=== PATIENT | male | born 1930 | race Caucasian/White ===

== ENCOUNTER 2016-07-30 06:58 | Day surgery (SDC) | payer OTHER ==
[~2016-07-30] VITALS: Ht 180.3 cm; Wt 68.0 kg
[~2016-07-30 06:58] MED LIST: ADULT LOW DOSE81 M1 PO; ALLOPURINOL300 MG PO; AUGMENTIN875 MG PO; AVODART0.5 MG PO; AZELASTINE137 MCG/0. BOTH NARES; BACTRIM,SEPT1 TABLET PO; COLCHICINE0.6 MG PO; COLCRYS0.6 MG PO; COUMADIN,JANTO2.5 MG PO; COUMADIN3 MG PO; HYDROCHLOROTH12.5 M2 PO; IPRATROPIUM BRO15 ML BOTH NARES; LEVAQUIN500 MG PO; LISINOPRIL20 MG PO; NAPROSYN500 MG PO; NAPROXEN500 M2 PO; NORVASC2.5 MG PO; PRAVACHOL80 MG PO; PRINIVIL20 MG PO; ZESTRIL40 MG PO
[2016-07-30 07:46] VITALS: BP 140/68
[2016-07-30 08:11] LABS: HEMATOCRIT 40.9 % (38.0-50.0); MCH 32.2 PG (29.0-34.0); MCHC 33.3 G/DL (30.0-36.0); MCV 96.9 FL (86-99); MEAN PLAT.VOLUME 10.3 uM^3 (9.0-12.4); PLATELET COUNT 111 K/uL (156-360); RBC DIS.WIDTH-CV 14.9 % (11.8-14.6); RBC DIS.WIDTH-SD 52.9 % (39-53); RED BLOOD COUNT 4.22 M/uL (4.00-5.50); WHITE BLOOD COUNT 5.7 K/uL (4.1-10.2)
[2016-07-30 08:32] LABS: INTER. NORMALIZED RATIO 1.1; PROTHROMBIN TIME 11.3 (9.2-11.2)
[2016-07-30 08:36] LABS: ANION GAP 7 MEQ/L (2-14); CHLORIDE 108 MEQ/L (99-109); POTASSIUM 4.2 MEQ/L (3.7-5.4); SAMPLE HEMOLYSIS CHECK 0; SAMPLE ICTERIC CHECK 0; SAMPLE LIPEMIA CHECK 0; SODIUM 143 MEQ/L (136-147)
[2016-07-30 08:42] LABS: GFR ESTIMATE (CALCULATED) > 59 mL/min/; GLUCOSE 85 mg/dL (70-99); UREA NITROGEN (BUN) 24 mg/dL (9-23)
[2016-07-30 15:36] VITALS: BP 158/95
[2016-07-30 17:37] VITALS: BP 142/78
[2016-07-30 19:44] VITALS: BP 134/81
[2016-07-30 23:21] VITALS: BP 125/58
[2016-07-31 03:19] VITALS: BP 133/61
[2016-07-31 07:23] VITALS: BP 145/62
[2016-07-31 11:43] VITALS: BP 151/81
[2016-07-31] MEDS ORDERED: CIPRO500 MG PO (22:42)
[2016-07-31] MEDS ORDERED: COUMADIN3 MG PO (22:42)
[2016-07-31] MEDS ORDERED: ASPIR-LOW81 MG PO (22:42)
[2016-07-31] MEDS ORDERED: LORCET 5-325 M1 EACH PO (22:43)
== END 2016-07-31 15:42 | disposition home or self-care (01) ==
LOC: SDC 06:58 → 2SOUTH 11:07 → 2EAST 11:07
PROVIDERS: Urology
DX: N20.0 Calculus of kidney (principal); N40.0 Benign prostatic hyperplasia without lower urinary tract symptoms; R31.0 Gross hematuria; I48.2 Chronic atrial fibrillation; Z79.01 Long term (current) use of anticoagulants; N99.820 Postprocedural hemorrhage of a genitourinary system organ or structure following a genitourinary system procedure; I10 Essential (primary) hypertension; I25.10 Atherosclerotic heart disease of native coronary artery without angina pectoris; E78.2 Mixed hyperlipidemia; I65.29 Occlusion and stenosis of unspecified carotid artery; Z79.82 Long term (current) use of aspirin; Z95.1 Presence of aortocoronary bypass graft
CPT/HCPCS: 80048; 82365 90; 85027; 85610; C1876; C1894; G0378; J0330; J0690; J1170; J1580; J2405; J3010; J7050; J7120

== ENCOUNTER 2016-07-31 20:20 | Inpatient (IN) | payer OTHER ==
[~2016-07-31] VITALS: Ht 180.3 cm; Wt 66.1 kg
[2016-07-31 21:46] LABS: HEMATOCRIT 40.4 % (38.0-50.0); MCH 31.8 PG (29.0-34.0); MCHC 33.7 G/DL (30.0-36.0); MCV 94.4 FL (86-99); MEAN PLAT.VOLUME 9.8 uM^3 (9.0-12.4); PLATELET COUNT 125 K/uL (156-360); RBC DIS.WIDTH-CV 14.9 % (11.8-14.6); RBC DIS.WIDTH-SD 48.9 % (39-53); RED BLOOD COUNT 4.28 M/uL (4.00-5.50)
[2016-07-31 21:47] LABS: WHITE BLOOD COUNT 18.9 K/uL (4.1-10.2)
[2016-07-31 21:54] LABS: CHLORIDE 99 mEq/L (99-109); POTASSIUM 4.5 mEq/L (3.7-5.4); SODIUM 136 mEq/L (136-147)
[2016-07-31 21:57] LABS: ANION GAP 14 MEQ/L (2-14)
[2016-07-31 21:59] LABS: GFR ESTIMATE (CALCULATED) 47 mL/min/
[2016-07-31 22:00] LABS: TROP-I INTERPRETATION NEGATIVE; TROPONIN-I < 0.01 ng/mL (0.0-0.30); UREA NITROGEN (BUN) 34 mg/dL (9-23)
[2016-07-31 22:03] LABS: GLUCOSE 117 mg/dL (70-99)
[2016-07-31] MEDS ORDERED: ASPIR-LOW81 MG PO (22:42)
[2016-07-31] MEDS ORDERED: CIPRO500 MG PO (22:42)
[2016-07-31] MEDS ORDERED: COUMADIN3 MG PO (22:42)
[2016-07-31] MEDS ORDERED: LORCET 5-325 M1 EACH PO (22:43)
[2016-08-01 00:36] LABS: INTER. NORMALIZED RATIO 1.1; PTT 26.8 (25-32)
[2016-08-01 01:07] LABS: ADD MIUA? YES; BILIRUBIN LARGE; BLOOD LARGE; GLUCOSE (STRIP) NEGATIVE; KETONES 15; LEUKOCYTES MODERATE; NITRITE POSITIVE; PH, URINE 5.5 (5-8); PROTEIN (STRIP) >=300; SPECIFIC GRAVITY 1.025 (1.000-1.030); UROBILINOGEN 0.2 MG/DL (0.2-1.0)
[2016-08-01 01:10] LABS: COLOR BROWN ((YELLOW))
[2016-08-01 01:13] LABS: TOTAL BILIRUBIN 1.2 mg/dL (0.0-1.0)
[2016-08-01 01:15] LABS: ALKALINE PHOSPHATASE 71 IU/L (3-129)
[2016-08-01 01:18] LABS: DIRECT BILIRUBIN 0.5 mg/dL (0.0-0.3); LIPASE 26 U/L (1.0-51.0)
[2016-08-01 01:47] LABS: RED BLOOD CELLS TNTC /HPF (0-5); WHITE BLOOD CELLS TNTC /HPF (0-5)
[2016-08-01 01:48] LABS: AMORPHOUS URATES CRYSTALS 1+; BACTERIA 2+; CASTS NONE SEEN /LPF; CRYSTALS PRESENT; EPITHELIAL CELLS 1+; MUCUS NONE SEEN; UCUL ADDED? YES
[2016-08-01 02:01] LABS: ICTOTEST NEGATIVE
[2016-08-01 02:15] LABS: HDL CHOLESTEROL 57 MG/DL (Desirable>=40); LDL CHOLESTEROL 68 mg/dL (Desirable<100); NON-HDL CHOLESTEROL 78 mg/dL (Desirable<160); TOTAL CHOLESTEROL 135 mg/dL (Desirable<200); TRIGLYCERIDES 51 MG/DL (Normal: <150)
[2016-08-01 04:11] LABS: TROP-I INTERPRETATION NEGATIVE; TROPONIN-I < 0.01 ng/mL (0.0-0.30)
[2016-08-01 04:51] VITALS: BP 142/87
[2016-08-01 07:04] LABS: Estimated Average Glucose 94 mg/dL (70-123); HEMOGLOBIN A1c (GLYCOHEMOGLOB) 4.9 % HGB (Below 5.7)
[2016-08-01 08:16] VITALS: BP 162/81
[2016-08-01 10:42] LABS: HEMATOCRIT 37.5 % (38.0-50.0); MCH 32.1 PG (29.0-34.0); MCHC 33.6 G/DL (30.0-36.0); MCV 95.4 FL (86-99); MEAN PLAT.VOLUME 10.8 uM^3 (9.0-12.4); PLATELET COUNT 102 K/uL (156-360); RBC DIS.WIDTH-CV 14.7 % (11.8-14.6); RBC DIS.WIDTH-SD 51.6 % (39-53); RED BLOOD COUNT 3.93 M/uL (4.00-5.50); WHITE BLOOD COUNT 15.3 K/uL (4.1-10.2)
[2016-08-01 11:08] LABS: ANION GAP 10 MEQ/L (2-14); CHLORIDE 102 MEQ/L (99-109); GFR ESTIMATE (CALCULATED) 51 mL/min/; POTASSIUM 4.1 MEQ/L (3.7-5.4); SAMPLE HEMOLYSIS CHECK 0; SAMPLE ICTERIC CHECK 0; SAMPLE LIPEMIA CHECK 0; SODIUM 137 MEQ/L (136-147); UREA NITROGEN (BUN) 34 mg/dL (9-23)
[2016-08-01 11:13] LABS: GLUCOSE 87 mg/dL (70-99)
[2016-08-01 11:18] LABS: TROP-I INTERPRETATION NEGATIVE; TROPONIN-I < 0.01 ng/mL (0.0-0.30)
[2016-08-01 11:25] VITALS: BP 136/68
[2016-08-01 15:05] VITALS: BP 118/71
[2016-08-01 16:26] LABS: INTER. NORMALIZED RATIO 1.1; PROTHROMBIN TIME 11.5 (9.2-11.2)
[2016-08-01 20:05] VITALS: BP 155/75
[2016-08-02] VITALS: BP 149/85
[2016-08-02 04:00] VITALS: BP 159/81
[2016-08-02 06:53] LABS: INTER. NORMALIZED RATIO 1.2
[2016-08-02 07:14] VITALS: BP 138/88
[2016-08-02 08:26] LABS: MCHC 33.3 G/DL (30.0-36.0); MCV 96.2 FL (86-99); MEAN PLAT.VOLUME 11.3 uM^3 (9.0-12.4); PLATELET COUNT 101 K/uL (156-360); RBC DIS.WIDTH-CV 14.9 % (11.8-14.6); RBC DIS.WIDTH-SD 52.4 % (39-53); RED BLOOD COUNT 4.16 M/uL (4.00-5.50); WHITE BLOOD COUNT 13.8 K/uL (4.1-10.2)
[2016-08-02 09:05] LABS: ANION GAP 11 MEQ/L (2-14); CHLORIDE 105 MEQ/L (99-109); GFR ESTIMATE (CALCULATED) > 59 mL/min/; GLUCOSE 88 mg/dL (70-99); POTASSIUM 3.5 MEQ/L (3.7-5.4); SAMPLE HEMOLYSIS CHECK 0; SAMPLE ICTERIC CHECK 0; SAMPLE LIPEMIA CHECK 0; SODIUM 141 MEQ/L (136-147); UREA NITROGEN (BUN) 28 mg/dL (9-23)
[2016-08-02 11:18] VITALS: BP 142/88
[2016-08-02 15:06] VITALS: BP 135/82
[2016-08-02 20:00] VITALS: BP 165/78
[2016-08-03] VITALS: BP 146/85
[2016-08-03 04:00] VITALS: BP 123/68
[2016-08-03 05:53] LABS: INTER. NORMALIZED RATIO 1.3; PROTHROMBIN TIME 13.2 (9.2-11.2)
[2016-08-03 09:12] VITALS: BP 104/63
[2016-08-03 20:10] VITALS: BP 113/59
[2016-08-04] VITALS: BP 145/74
[2016-08-04 04:00] VITALS: BP 101/65
[2016-08-04 06:39] LABS: INTER. NORMALIZED RATIO 1.2; PROTHROMBIN TIME 12.3 (9.2-11.2)
[2016-08-04 06:43] LABS: HEMATOCRIT 33.3 % (38.0-50.0); MCH 31.1 PG (29.0-34.0); MCHC 32.4 G/DL (30.0-36.0); PLATELET COUNT 108 K/uL (156-360); RBC DIS.WIDTH-SD 52.5 % (39-53); RED BLOOD COUNT 3.47 M/uL (4.00-5.50)
[2016-08-04 07:00] LABS: ANION GAP 8 MEQ/L (2-14); CHLORIDE 112 MEQ/L (99-109); GFR ESTIMATE (CALCULATED) > 59 mL/min/; GLUCOSE 90 mg/dL (70-99); POTASSIUM 3.6 MEQ/L (3.7-5.4); SAMPLE HEMOLYSIS CHECK 0; SAMPLE ICTERIC CHECK 0; SAMPLE LIPEMIA CHECK 0; SODIUM 144 MEQ/L (136-147); UREA NITROGEN (BUN) 41 mg/dL (9-23)
[2016-08-04 08:11] VITALS: BP 137/78
[2016-08-04] MEDS ORDERED: LOPRESSOR25 MG PO (08:32)
[2016-08-04] MEDS ORDERED: LISINOPRIL20 MG PO (08:32)
[2016-08-04] MEDS ORDERED: POLYETHYLENE GL17 GM PO (08:33)
[2016-08-04] MEDS ORDERED: AUGMENTIN875 MG PO (09:52)
[2016-08-04] MEDS ORDERED: COUMADIN3 MG PO (10:28)
== END 2016-08-04 15:45 | disposition home or self-care (01) | DRG 853 ==
LOC: EME → EDBD 20:20 → EDOF 08-01 00:35 → 4EAST 08-01 00:35
PROVIDERS: Emergency Medicine; Hospitalist; Internal Medicine; Physician Assistant
DX: A41.9 Sepsis, unspecified organism (principal); J95.89 Other postprocedural complications and disorders of respiratory system, not elsewhere classified; J69.0 Pneumonitis due to inhalation of food and vomit; N39.0 Urinary tract infection, site not specified; N17.9 Acute kidney failure, unspecified; G45.9 Transient cerebral ischemic attack, unspecified; R31.0 Gross hematuria; E87.6 Hypokalemia; I48.91 Unspecified atrial fibrillation; N40.0 Benign prostatic hyperplasia without lower urinary tract symptoms; I49.5 Sick sinus syndrome; R33.9 Retention of urine, unspecified; I35.0 Nonrheumatic aortic (valve) stenosis; I25.10 Atherosclerotic heart disease of native coronary artery without angina pectoris; Z95.1 Presence of aortocoronary bypass graft; I10 Essential (primary) hypertension; E78.5 Hyperlipidemia, unspecified; M10.9 Gout, unspecified; I45.10 Unspecified right bundle-branch block; K59.00 Constipation, unspecified; Z86.73 Personal history of transient ischemic attack (TIA), and cerebral infarction without residual deficits; Z85.828 Personal history of other malignant neoplasm of skin; Z79.01 Long term (current) use of anticoagulants; Z87.891 Personal history of nicotine dependence; N20.0 Calculus of kidney
CPT/HCPCS: 70450; 71010; 71020; 74000; 80048; 80061; 80076; 81003; 82365 90; 83036; 83605; 83690; 83735; 84100; 84484; 85027; 85610; 85730; 87040; 87077; 87086; 87086 GA; 87186; 93005; 99281; 99285; C1876; C1894; G0378; J0330; J0690; J0696; J1170; J1580; J1956; J2405; J3010; J7030; J7040; J7050; J7120; S0030

== ENCOUNTER 2016-08-06 03:07 | Emergency (ER) | payer OTHER ==
[~2016-08-06] VITALS: Ht 180.3 cm; Wt 74.9 kg
[~2016-08-06 03:07] MED LIST changes: +ASPIR-LOW81 MG PO; +CIPRO500 MG PO; +LOPRESSOR25 MG PO; +LORCET 5-325 M1 EACH PO; +POLYETHYLENE GL17 GM PO
[2016-08-06 03:40] LABS: HEMATOCRIT 37.8 % (38.0-50.0); MCH 31.6 PG (29.0-34.0); MCHC 33.3 G/DL (30.0-36.0); MCV 94.7 FL (86-99); MEAN PLAT.VOLUME 9.9 uM^3 (9.0-12.4); PLATELET COUNT 136 K/uL (156-360); RBC DIS.WIDTH-CV 14.5 % (11.8-14.6); RBC DIS.WIDTH-SD 47.9 % (39-53); RED BLOOD COUNT 3.99 M/uL (4.00-5.50); WHITE BLOOD COUNT 8.2 K/uL (4.1-10.2)
[2016-08-06 03:49] LABS: INTER. NORMALIZED RATIO 1.2; PROTHROMBIN TIME 12.1 (9.2-11.2); PTT 28.8 (25-32)
[2016-08-06 03:52] LABS: POTASSIUM 3.7 mEq/L (3.7-5.4); SODIUM 142 mEq/L (136-147)
[2016-08-06 03:54] LABS: GLUCOSE 111 mg/dL (70-99)
[2016-08-06 03:56] LABS: ANION GAP 10 MEQ/L (2-14)
[2016-08-06 03:58] LABS: CHLORIDE 110 mEq/L (99-109); GFR ESTIMATE (CALCULATED) > 59 mL/min/
[2016-08-06 04:01] LABS: TROP-I INTERPRETATION NEGATIVE; TROPONIN-I < 0.01 ng/mL (0.0-0.30); UREA NITROGEN (BUN) 20 mg/dL (9-23)
[2016-08-06 04:45] VITALS: BP 140/90
== END 2016-08-06 05:13 | disposition left against medical advice (07) ==
LOC: EME 03:07
PROVIDERS: Emergency Medicine
DX: R07.9 Chest pain, unspecified (principal); I10 Essential (primary) hypertension; E78.5 Hyperlipidemia, unspecified; I48.91 Unspecified atrial fibrillation; Z79.01 Long term (current) use of anticoagulants; M10.9 Gout, unspecified; Z95.1 Presence of aortocoronary bypass graft; Z87.891 Personal history of nicotine dependence
CPT/HCPCS: 80048; 84484; 85027; 85610; 85730; 93005; 99281; 99284

== ENCOUNTER 2016-08-13 22:16 | Emergency (ER) | payer OTHER ==
[~2016-08-13] VITALS: Ht 182.9 cm; Wt 68.9 kg
[2016-08-13 23:36] LABS: ADD MIUA? YES; BILIRUBIN NEGATIVE; BLOOD LARGE; COLOR YELLOW ((YELLOW)); GLUCOSE (STRIP) NEGATIVE; KETONES NEGATIVE; LEUKOCYTES SMALL; NITRITE NEGATIVE; PROTEIN (STRIP) TRACE; SPECIFIC GRAVITY 1.012 (1.000-1.030); UROBILINOGEN 0.2 MG/DL (0.2-1.0)
[2016-08-13 23:51] LABS: BACTERIA 2+; CASTS NONE SEEN /LPF; CRYSTALS PRESENT; EPITHELIAL CELLS RARE; MUCUS NONE SEEN; UCUL ADDED? YES
[2016-08-13 23:52] LABS: AMORPHOUS PHOSPHATE CRYSTALS 1+
[2016-08-14 00:44] VITALS: BP 161/84
== END 2016-08-14 00:46 | disposition home or self-care (01) ==
LOC: EME 22:16
PROVIDERS: Emergency Medicine
PROC: 0T9B70Z Drainage of Bladder with Drainage Device, Via Natural or Artificial Opening (ICD-10-PCS; principal; 2016-08-13)
DX: R33.9 Retention of urine, unspecified (principal); Z98.890 Other specified postprocedural states; I10 Essential (primary) hypertension; E78.5 Hyperlipidemia, unspecified; Z87.442 Personal history of urinary calculi; Z95.1 Presence of aortocoronary bypass graft; Z87.891 Personal history of nicotine dependence; Z79.82 Long term (current) use of aspirin
CPT/HCPCS: 81003; 87086; 99281; 99284

== ENCOUNTER 2017-10-13 10:46 | Observation (INO) | payer OTHER ==
[~2017-10-13] VITALS: Ht 182.9 cm; Wt 69.4 kg
[2017-10-13 11:09] LABS: BASOPHIL (%) 0.3 % (0-1); EOSINOPHIL (%) 0.8 % (0-5); EOSINOPHIL COUNT 0.1 K/uL (0-0.3); HEMATOCRIT 41.4 % (38.0-50.0); HEMOGLOBIN 13.8 G/DL (12.5-16.6); IMMATURE GRANULOCYTE (%) 0.3 % (0.0-0.7); LYMPHOCYTE (%) 12.1 % (15-42); LYMPHOCYTE COUNT 0.8 K/uL (1.0-2.8); MCH 31.9 PG (29.0-34.0); MCHC 33.3 G/DL (30.0-36.0); MCV 95.6 FL (86-99); MONOCYTE COUNT 0.5 K/uL (0-0.8); NEUTROPHIL (%) 79.5 % (45-76); NEUTROPHIL COUNT 5.1 K/uL (1.8-6.4); PLATELET COUNT 107 K/uL (156-360); RBC DIS.WIDTH-CV 13.7 % (11.8-14.6); RBC DIS.WIDTH-SD 48.2 % (39-53); RED BLOOD COUNT 4.33 M/uL (4.00-5.50); WHITE BLOOD COUNT 6.5 K/uL (4.1-10.2)
[2017-10-13 11:17] LABS: INTER. NORMALIZED RATIO 2.4
[2017-10-13 11:20] LABS: CHLORIDE 107 mEq/L (99-109); POTASSIUM 3.9 mEq/L (3.7-5.4); SODIUM 143 mEq/L (136-147)
[2017-10-13 11:22] LABS: GLUCOSE 117 mg/dL (70-99); TOTAL PROTEIN 6.3 g/dL (6.4-8.3)
[2017-10-13 11:24] LABS: TOTAL BILIRUBIN 0.9 mg/dL (0.0-1.0)
[2017-10-13 11:25] LABS: ALKALINE PHOSPHATASE 79 IU/L (3-129)
[2017-10-13 11:26] LABS: GFR ESTIMATE (CALCULATED) > 59 mL/min/ (58.99-99999)
[2017-10-13 11:27] LABS: AST (GOT) 20 IU/L (2-34); UREA NITROGEN (BUN) 24 mg/dL (9-23)
[2017-10-13 11:29] LABS: ALT (GPT) 14 IU/L (3-49)
[2017-10-13 11:30] LABS: TROP-I INTERPRETATION NEGATIVE; TROPONIN-I < 0.01 ng/mL (0.0-0.30)
[2017-10-13] MEDS ORDERED: FLOMAX0.4 MG PO (14:09)
[2017-10-13 16:54] VITALS: BP 130/94
[2017-10-13 17:45] VITALS: BP 142/82
[2017-10-13 17:46] VITALS: BP 143/85
[2017-10-13 17:47] VITALS: BP 144/78
[2017-10-13 18:46] LABS: TROP-I INTERPRETATION NEGATIVE; TROPONIN-I 0.02 ng/mL (0.0-0.30)
[2017-10-13 19:11] VITALS: BP 108/60
[2017-10-14 00:37] VITALS: BP 129/96
[2017-10-14 00:50] LABS: TROP-I INTERPRETATION NEGATIVE; TROPONIN-I < 0.01 ng/mL (0.0-0.30)
[2017-10-14 03:54] VITALS: BP 141/87
[2017-10-14 06:13] LABS: CHLORIDE 109 MEQ/L (99-109); CREATININE 1.1 MG/DL (0.6-1.3); GFR ESTIMATE (CALCULATED) > 59 mL/min/ (58.99-99999); GLUCOSE 91 mg/dL (70-99); POTASSIUM 4.2 MEQ/L (3.7-5.4); SODIUM 143 MEQ/L (136-147); UREA NITROGEN (BUN) 19 mg/dL (9-23)
[2017-10-14 07:56] VITALS: BP 162/91
[2017-10-14 10:43] LABS: INTER. NORMALIZED RATIO 2.3
== END 2017-10-14 12:55 | disposition home or self-care (01) ==
LOC: EME 10:46 → EDOF 13:19 → 5WEST 13:19 → EDOF 13:19 → ENRESERV 13:23 → 5WEST 16:43
PROVIDERS: Emergency Medicine; Hospitalist; Internal Medicine
DX: R55 Syncope and collapse (principal); I49.5 Sick sinus syndrome; I48.91 Unspecified atrial fibrillation; I25.10 Atherosclerotic heart disease of native coronary artery without angina pectoris; I45.10 Unspecified right bundle-branch block; D69.6 Thrombocytopenia, unspecified; I10 Essential (primary) hypertension; E78.00 Pure hypercholesterolemia, unspecified; E78.5 Hyperlipidemia, unspecified; M10.9 Gout, unspecified; Z95.1 Presence of aortocoronary bypass graft; Z79.01 Long term (current) use of anticoagulants; Z86.73 Personal history of transient ischemic attack (TIA), and cerebral infarction without residual deficits; Z87.891 Personal history of nicotine dependence; Z79.82 Long term (current) use of aspirin; Z87.442 Personal history of urinary calculi
CPT/HCPCS: 80048; 80053; 84484; 85025; 85610; 93005; 93306; 99281; 99285; G0378; J0461